=== PATIENT | female | born 1990 | race Caucasian/White ===

== ENCOUNTER 2022-12-02 06:35 | Emergency (ER) | payer OTHER ==
[~2022-12-02] VITALS: Ht 162.6 cm; Wt 122.1 kg
[2022-12-02] MEDS ORDERED: GNP28TAB2 PO (06:43)
[2022-12-02] MEDS ORDERED: FLUC150T9 PO (06:43)
[2022-12-02] MEDS ORDERED: FLUORESCEIN OPHTH 1MG STRIP OU ONE (08:15)
[2022-12-02] MEDS ORDERED: PROPARACAINE 0.5% OPHTH SOL 15ML OU ONE (08:15)
[2022-12-02] MEDS ORDERED: AMOX875T2 PO (09:03)
[2022-12-02] MEDS ORDERED: ERYT5OIN25 OP (09:03)
[2022-12-02 09:20] VITALS: BP 130/95
== END 2022-12-02 09:30 | disposition home or self-care (01) ==
LOC: M ED 06:35
DX: H10.33 Unspecified acute conjunctivitis, bilateral (principal); J06.9 Acute upper respiratory infection, unspecified; B34.9 Viral infection, unspecified; R05.9 Cough, unspecified